=== PATIENT | female | born 1970 | race African-American/Black ===

== ENCOUNTER 2016-06-07 15:12 | Emergency (ER) | payer OTHER, MEDICAID ==
[~2016-06-07] VITALS: Ht 170.2 cm; Wt 86.2 kg
[~2016-06-07 15:12] MED LIST: ASPIRIN81 M1 PO; CHLOROPHYLL 3 M1 TAB PO; DOCUSATE SODIU100 M4 PO; KEPPRA500 MG PO; NORVASC5 MG PO; PRAVASTATIN SOD10 M1 PO; SYNTHROID0.125 MG PO; TEGRETOL-XR200 MG PO
[2016-06-07 15:20] VITALS: BP 165/111
--- NOTE | 2016-06-07 15:45 | NUR ---
Pt w/c assisted to bed 6.
--- NOTE | 2016-06-07 16:06 | NUR ---
Dr. Seo evaluating patient at bedside.
[2016-06-07] MEDS ORDERED: ASPIRIN 325 MG TAB PO ONE (16:15)
[2016-06-07] MEDS ORDERED: NITROGLYCERIN 0.4 MG TAB SL ONE (16:15)
--- NOTE | 2016-06-07 16:15 | NUR ---
45/F presents to ED for evaluaton of chest pain since approximately 1200 while patient was at her day program. Pt c/o chest pain, dull, non radiating, 02/11. Denies N/V/D. Denies SOB. Denies s/s of UTI.
--- NOTE | 2016-06-07 17:30 | NUR ---
Patient appears to be resting comfortably in bed. Vital Signs within normal limits. Respirations even and unlabored.
--- NOTE | 2016-06-07 17:58 | NUR ---
PT STILL C/O 10/[address] Austin MADE AWARE. DOCTOR AT BEDSIDE.
[2016-06-07] MEDS ORDERED: IBUPROFEN 800 MG TAB PO ONE (19:10)
--- NOTE | 2016-06-07 19:17 | NUR ---
Pt report given to JEFF SOTELO. Transfer of care at this time.
[2016-06-07 20:12] VITALS: BP 122/81
--- NOTE | 2016-06-07 20:12 | NUR ---
Patient discharged with v/s stable. Written and verbal after care instructions given and explained TO PT AND CAREGIVER. Patient alert, oriented and verbalized understanding of instructions. Wheel Chair Assisted with by caregiver. All questions addressed prior to discharge. ID band removed. Patient AND CAREGIVER advised to follow up with PMD. Rx of MOTRIN 600MG given. Patient AND CAREGIVER educated on indication of medication including possible reaction and side effects. Opportunity to ask questions provided and answered. VSS, VERBALIZED A DECREASED IN PAIN. NO S/S OF DISTRESS NOTED AT THIS MOMENT.
== END 2016-06-07 20:12 | disposition home or self-care (01) ==
LOC: MED 15:12
DX: R07.89 Other chest pain (principal); I10 Essential (primary) hypertension; Z79.82 Long term (current) use of aspirin
CPT/HCPCS: 36415; 71010; 80053; 83880; 84484; 85025; 85610; 85730; 93005; 99285; Q0092